=== PATIENT | female | born 1935 | race Caucasian/White ===

== ENCOUNTER 2022-06-17 08:24 | Day surgery (SDC) | payer MEDICARE ==
[~2022-06-17] VITALS: Ht 165.1 cm; Wt 90.9 kg
[2022-06-17 08:40] VITALS: BP 156/85
[2022-06-17] MEDS ORDERED: OMEP20CA16 PO (08:42)
[2022-06-17] MEDS ORDERED: HYDR25TA5 PO (08:42)
[2022-06-17] MEDS ORDERED: POTA10CA44 PO (08:43)
[2022-06-17] MEDS ORDERED: LOSA100T57 PO (08:43)
[2022-06-17] MEDS ORDERED: PRAV20TA4 PO (08:44)
[2022-06-17] MEDS ORDERED: fentaNYL/PF 50MCG/1 ML 2ML syringe ONE (08:48)
[2022-06-17] MEDS ORDERED: MIDAZolam 1 MG/ML 5ML VIAL ONE (08:48)
[2022-06-17] MEDS ORDERED: diphenhydrAMINE 50 mg/ml inj ONE (08:49)
[2022-06-17] MEDS ORDERED: LIDOcaine Viscous 15ml cup ONE (08:49)
[2022-06-17 10:09] VITALS: BP 179/98
[2022-06-17 10:19] VITALS: BP 157/85
[2022-06-17 10:29] VITALS: BP 177/108
[2022-06-17 10:39] VITALS: BP 149/96
== END 2022-06-17 10:45 | disposition home or self-care (01) ==
LOC: GI LAB 08:24
PROVIDERS: ATTEND Internal Medicine Gastroenterology
DX: R19.5 Other fecal abnormalities (principal); D50.0 Iron deficiency anemia secondary to blood loss (chronic); K57.30 Diverticulosis of large intestine without perforation or abscess without bleeding; K29.50 Unspecified chronic gastritis without bleeding; K22.89 Other specified disease of esophagus; K59.00 Constipation, unspecified
CPT/HCPCS: 43239; 45378; 99153; G0500; J1200; J2250; J3010; J7030; Z7512; 99152; A4620

== ENCOUNTER 2024-10-25 07:25 | Day surgery (SDC) | payer MEDICARE ==
[2024-10-21 11:15] LABS: BASOPHILS # (AUTO) 0.1 X10'3 (0-0.2); BASOPHILS % (AUTO) 1.2 % (0-1); EOSINOPHILS # (AUTO) 0.2 X10'3 (0-0.9); EOSINOPHILS % (AUTO) 2.5 % (0-6); HEMATOCRIT 40.8 % (35.0-45.0); HEMOGLOBIN 13.1 g/dl (12.0-16.0); LYMPHOCYTES # (AUTO) 1.3 X10'3 (1.1-4.8); MEAN CORPUSCULAR HEMOGLOBIN 28.4 PG (27.0-31.0); MEAN CORPUSCULAR HGB CONC 32.2 g/dL (33.0-36.5); MEAN CORPUSCULAR VOLUME 88.4 FL (78-98); MEAN PLATELET VOLUME 8.1 FL (7.4-10.4); MONOCYTES # (AUTO) 1.1 X10'3 (0-0.9); MONOCYTES % (AUTO) 15.7 % (2-12); NEUTROPHILS # (AUTO) 4.2 X10'3 (1.8-7.7); NEUTROPHILS % (AUTO) 61.6 % (42-75); PLATELET COUNT 337 X10'3 (140-440); RED BLOOD COUNT 4.62 X10'6 (4.20-5.60); RED CELL DISTRIBUTION WIDTH 16.7 % (11.5-14.5); WHITE BLOOD COUNT 6.9 X10'3 (4.5-11.0)
[2024-10-21 11:26] LABS: APTT 26 SECONDS (22-32); PROTHROMBIN TIME 10.3 SECONDS (9.0-12.0)
[2024-10-21 11:33] LABS: GLUCOSE 100 MG/DL (70-104); SODIUM 140 MMOL/L (135-145)
[2024-10-21 11:34] LABS: ALBUMIN 3.6 G/DL (3.4-5.0); ANION GAP 7 (8-16); BLOOD UREA NITROGEN 14 MG/DL (7-18); BUN/CREATININE RATIO 18.9 (10.0-20.0); CALCIUM 9.4 MG/DL (8.5-10.1); CHLORIDE 105 MMOL/L (99-107); CHOL/HDL RATIO 2.4 (0.00-4.99); CHOLESTEROL 259 MG/DL (0-200); CREATININE 0.74 MG/DL (0.40-0.90); HDL CHOLESTEROL 109 MG/DL (35-60); LDL CHOLESTEROL 121 MG/DL (50-100); POTASSIUM 4.1 MMOL/L (3.5-5.1); TOTAL CARBON DIOXIDE 28.5 MMOL/L (24-32); TRIGLYCERIDES 264 MG/DL (20-135); eGFR 74 ML/MIN
[2024-10-25] VITALS (9 sets, daily range): BP systolic 110–177; BP diastolic 42–96; PULSE 63–76; RESP 11–20; TEMP 98; O2SAT 94–97
[~2024-10-25] VITALS: Ht 162.6 cm; Wt 85.2 kg
[~2024-10-25 07:25] MED LIST: HYDR25TA5 PO; LOSA100T58 PO; OMEP20CA16 PO; POTA10CA95 PO; PRAV20TA4 PO
[2024-10-25] MEDS ORDERED: LORazepam 0.5 MG tablet PO PRN (07:55)
[2024-10-25] MEDS ORDERED: diphenhydrAMINE 25mg capsule PO PRN (07:55)
[2024-10-25] MEDS ORDERED: normal saline 1,000 ML IV SCH (07:55)
[2024-10-25] MEDS ORDERED: FERR325T29 PO (08:17)
[2024-10-25] MEDS ORDERED: ALBU18HF2 INH (08:20)
[2024-10-25] MEDS ORDERED: AMLO10TA14 PO (08:20)
[2024-10-25] MEDS ORDERED: LIDOcaine 1% (10mg/ml) 2ml vial ONE (09:52)
[2024-10-25] MEDS ORDERED: iohexol 350MG/ML 100ml bottle IV ONE (09:52)
[2024-10-25] MEDS ORDERED: midazolam 1 mg/ML 2ml injection ONE (09:52)
[2024-10-25] MEDS ORDERED: verapamil 2.5 mg/ml inj IV ONE (09:52)
[2024-10-25] MEDS ORDERED: fentaNYL/PF 50MCG/1 ML 2ML syringe ONE (09:52)
[2024-10-25] MEDS ORDERED: heparin 1,000unit/ml 10ml vial 10 ML ONE (09:52)
[2024-10-25] MEDS ORDERED: nitroGLYCERIN 500mcg/5mL D5W 5 ML IV ONE (09:59)
[2024-10-25 11:54] LABS: ISTAT HGB ART 12.2 g/dl (12.0-16.0); ISTAT Hct ART 36 %PCV (35-45); ISTAT O2 SATURATION ARTERIAL 93 % (95-98); ISTAT SOURCE ART
[2024-10-25] MEDS ORDERED: ondansetron/PF 4mg/2ml inj IV PRN (12:45)
[2024-10-25] MEDS ORDERED: HYDROcodone/acetaminophen 10/325mg tab PO PRN (12:45)
[2024-10-25] MEDS ORDERED: proCHLORperazine 10 MG/2 ml inj IV PRN (12:45)
[2024-10-25] MEDS ORDERED: HYDROcodone/acetaminophen 5mg/325mg tablet PO PRN (12:45)
[2024-10-26 11:42] LABS: ISTAT HGB MIX 12.9 g/dl (12.0-16.0); ISTAT Hct MIX 38 %PCV (35-45); ISTAT O2 SATURATION MIX VENOUS 66 % (60-80); ISTAT SOURCE VEN
== END 2024-10-25 14:25 | disposition home or self-care (01) ==
LOC: SSTAY O 07:25
PROVIDERS: ATTEND Internal Medicine Interventional Cardiology
DX: I35.0 Nonrheumatic aortic (valve) stenosis (principal); I10 Essential (primary) hypertension; I25.10 Atherosclerotic heart disease of native coronary artery without angina pectoris; J45.909 Unspecified asthma, uncomplicated; Z79.01 Long term (current) use of anticoagulants; Z79.899 Other long term (current) drug therapy; K21.9 Gastro-esophageal reflux disease without esophagitis; Z98.890 Other specified postprocedural states
CPT/HCPCS: 80048; 80061; 82803; 85014; 85025; 85610; 85730; 93005; 93456; 99152; 99153; A6258; A6402; C1751; C1769; C1894; J1644; J2003; J2250; J3010; J3490; J7030; Q9967; Z7610

== ENCOUNTER 2024-11-25 10:38 | Outpatient (CLI) | payer MEDICARE ==
[~2024-11-25 10:38] MED LIST changes: +ALBU18HF2 INH; +AMLO10TA14 PO; +FERR325T29 PO; -HYDR25TA5 PO; +IODIXANOL 320 MG/ML INFUS..BTL 100ML IV ONE; -POTA10CA95 PO; -PRAV20TA4 PO
[2024-11-25 11:24] LABS: BASOPHILS # (AUTO) 0.1 X10'3 (0-0.2); BASOPHILS % (AUTO) 1.1 % (0-1); EOSINOPHILS # (AUTO) 0.1 X10'3 (0-0.9); HEMATOCRIT 41.3 % (35.0-45.0); HEMOGLOBIN 13.5 g/dl (12.0-16.0); LYMPHOCYTES # (AUTO) 1.3 X10'3 (1.1-4.8); LYMPHOCYTES % (AUTO) 18.5 % (21-51); MEAN CORPUSCULAR HEMOGLOBIN 28.9 PG (27.0-31.0); MEAN CORPUSCULAR HGB CONC 32.7 g/dL (33.0-36.5); MEAN CORPUSCULAR VOLUME 88.4 FL (78-98); MEAN PLATELET VOLUME 8.4 FL (7.4-10.4); MONOCYTES % (AUTO) 14.2 % (2-12); NEUTROPHILS # (AUTO) 4.4 X10'3 (1.8-7.7); NEUTROPHILS % (AUTO) 64.2 % (42-75); PLATELET COUNT 303 X10'3 (140-440); RED BLOOD COUNT 4.67 X10'6 (4.20-5.60); RED CELL DISTRIBUTION WIDTH 13.7 % (11.5-14.5); WHITE BLOOD COUNT 6.9 X10'3 (4.5-11.0)
[2024-11-25 11:35] LABS: APTT 27 SECONDS (22-32); PROTHROMBIN TIME 10.9 SECONDS (9.0-12.0)
[2024-11-25 11:46] LABS: ALANINE AMINOTRANSFERASE 24 U/L (12-78); ALBUMIN 3.8 G/DL (3.4-5.0); ALKALINE PHOSPHATASE 62 IU/L (46-116); ANION GAP 6 (8-16); ASPARTATE AMINO TRANSFERASE 19 U/L (10-37); BILIRUBIN,TOTAL 0.4 MG/DL (0.1-1.0); BLOOD UREA NITROGEN 16 MG/DL (7-18); BUN/CREATININE RATIO 28.6 (10.0-20.0); CALCIUM 9.7 MG/DL (8.5-10.1); CHLORIDE 105 MMOL/L (99-107); CREATININE 0.56 MG/DL (0.40-0.90); GLUCOSE 99 MG/DL (70-104); POTASSIUM 3.9 MMOL/L (3.5-5.1); PRO BRAIN NATRIURETIC PEPTIDE 111 PG/ML (0-450); SODIUM 141 MMOL/L (135-145); TOTAL CARBON DIOXIDE 30.2 MMOL/L (24-32); TOTAL PROTEIN 7.6 G/DL (6.4-8.2); eGFR > 90 ML/MIN
== END 2024-11-25 23:59 | disposition home or self-care (01) ==
LOC: RAD 10:38
PROVIDERS: ATTEND Internal Medicine Cardiovascular Disease
DX: I35.0 Nonrheumatic aortic (valve) stenosis (principal); R06.02 Shortness of breath; I65.29 Occlusion and stenosis of unspecified carotid artery; K44.9 Diaphragmatic hernia without obstruction or gangrene; I25.10 Atherosclerotic heart disease of native coronary artery without angina pectoris
CPT/HCPCS: 36415; 71046; 71275; 74174; 75572; 80053; 83880; 85025; 85610; 85730; Q9967